=== PATIENT | female | born 1985 | race Caucasian/White ===

== ENCOUNTER 2022-10-21 07:29 | Inpatient (IN) | payer OTHER, SELFPAY ==
[2022-10-21 07:38] VITALS: BP 115/65
[2022-10-21 09:09] LABS: Add Manual Diff / Slide Review NO; Basophils Absolute Auto 0 /uL (0-100); Basophils Percent Auto 0.4 % (0-2); Eosinophils Absolute Auto 100 /uL (0-450); Eosinophils Percent Auto 0.7 % (2-4); Hematocrit 32.3 % (36-46); Hemoglobin 10.9 g/dL (12.0-16.0); Lymphocytes Absolute Auto 1900 /uL (1100-4500); Lymphocytes Percent Auto 16.5 % (25-40); Mean Corpuscular HGB Conc 33.8 % (30-36); Mean Corpuscular Hemoglobin 24.8 PG (26-34); Mean Corpuscular Volume 73.4 fL (80-100); Monocytes Absolute Auto 600 /uL (0-900); Monocytes Percent Auto 5.5 % (3-14); Neutrophils Absolute Auto 9000 /uL (1500-7000); Neutrophils Percent Auto 76.9 % (50-75); Platelet Count 273 X10^3/uL (150-400); Red Cell Distribution Width 16.4 % (11.6-14.8); White Blood Cell Count 11.8 X10^3/uL (4.5-11.0)
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
[2022-10-21] MEDS: LACTATED RINGERS 1,000 ML 100 ML IV (09:39)
[2022-10-21] MEDS: OXYTOCIN PREMIX 30 UNIT/500 ML PLAST..BAG IV (09:39)
[2022-10-21 10:19] VITALS: BP 115/65; PULSE 90
[2022-10-21 10:42] VITALS: TEMP 36.2
[2022-10-21 10:46] VITALS: RESP 16
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
--- NOTE | 2022-10-21 16:02 | PM.OBPNLAB ---
Date/Time Date Patient Seen: 10/21/22 Time Patient Seen: 15:30 Pain Control Pain control: tolerating well Comments: Paola is coping well with labor but getting more nervous - now feeling that contractions are getting painful. Thrilled to hear that she's 6 cm. Does not want to have her water broken right now. Pelvic Exam Dilation (cm): 6 Effacement (%): 80 station: -1 Amniotic membrane status: Intact Comments: Fetus ROP by ultrasound Contractions Pitocin rate (mU/min): 10 Contraction frequency (min): 2 Contraction duration (min): 1 Contraction pattern: Regular Contraction intensity: Moderate Status status: Category l Heart Rate Baseline: 140 Monitor Accelerations: Present Monitor Decelerations: Absent Monitor Variability: Moderate Comments: Non-recurring variable decelerations seen earlier; none in last 30 minutes. Late decels noted earlier in the day when pitocin at 14 mu/min, so pitocin turned down and patient repositioned at that time. VS: BP - 121/65 HR - 97 bpm Temp - 36.2 C BG at 1300 - 87 Assessment and Plan Assessment: active labor, induction ongoing and other ( at 39w0d by early US; GDMA2, GBS neg, Rh pos, FHR Cat 1 ) Plan: continuous present management and other (encourage AROM) Comments: Bedside ultrasound after SVE to confirm position as glenny OT. Continue q 2 hour blood sugar checks. AROM recommended by SARAH and Dr. Woodard, patient refused at this time. Reviewed pain management options. Anticipate NSVB.
--- NOTE | 2022-10-21 16:30 | PM.AN.REGBLK ---
Regional Block Pre-procedure Procedure: Continuous Lumbar Epidural for L&D Labs: Hct 32.3 % (36-46) L 10/21/22 08:00 Hct Cancelled 10/21/22 08:00 Plt Count 273 X10^3/uL (150-400) 10/21/22 08:00 Plt Count Cancelled 10/21/22 08:00 Medications: Current Medications Generic Name Dose Route Start Last Admin Trade Name Freq PRN Reason Stop Dose Admin Calcium Carbonate 1,000 mg 10/21/22 08:18 Calcium Carbonate 500 Mg Tab PO Q4HR PRN Dyspepsia Carboprost Tromethamine 250 mcg 10/21/22 08:13 Carboprost 250 Mcg/Ml Ampul IM Q90M PRN Bleeding Diphenhydramine HCl 25 mg 10/21/22 16:26 Diphenhydramine 50 Mg/Ml Vial IV Q10M PRN Pruritis Ephedrine Sulfate 10 mg 10/21/22 16:26 Ephedrine 50 Mg/Ml Vial IV Q5M PRN Blood pressure decrease more than 20% of baseline. Fentanyl 100 mcg 10/21/22 08:18 Fentanyl 100 Mcg/2 Ml Inj IV Q1H PRN Pain, Severe (7-10) Oxytocin/Lactated Ringer's 30 unit in 500 mls @ 200 mls/hr 10/21/22 08:13 Oxytocin Premix IV CONT PRN Bleeding Protocol Tranexamic Acid 1,000 mg/ 100 mls @ 200 mls/hr 10/21/22 08:13 Sodium Chloride IV NOW PRN Bleeding Oxytocin/Lactated Ringer's 30 unit in 500 mls @ 2 mls/hr 10/21/22 08:15 10/21/22 09:39 Oxytocin Premix IV 2 milliunit/min TITRATE ADA 2 mls/hr Administration Protocol 2 MILLIUNIT/MIN Lactated Ringer's 1,000 mls @ 100 mls/hr 10/21/22 08:15 10/21/22 09:39 Lactated Ringers IV 100 mls/hr CONT ADA Administration FENT 2MCG/ML BUPIV 0.125% EPI 200 mcg in 100 mls @ 10 mls/hr 10/21/22 16:30 Fentanyl/Bupiv/Ns 2mcg/Ml - 0.125% EPIDURAL CONT ADA Lidocaine HCl 20 ml 10/21/22 08:13 Lidocaine 1% 20 Ml INJ INTRA-OP PRN Post Delivery Methylergonovine Maleate 0.2 mg 10/21/22 08:13 Methylergonovine 0.2 Mg Tablet PO Q6HR PRN Heavy Bleeding Methylergonovine Maleate 0.2 mg 10/21/22 08:13 Methylergonovine 0.2 Mg/Ml Vial IM NOW PRN Bleeding Misoprostol 800 mcg 10/21/22 08:13 Misoprostol 200 Mcg Tablet DE NOW PRN Bleeding Misoprostol 400 mcg 10/21/22 08:13 Misoprostol 200 Mcg Tablet SL NOW PRN Bleeding Nalbuphine HCl 2.5 mg 10/21/22 16:26 Nalbuphine 20 Mg/Ml Ampul IV Q10M PRN Pruritis Naloxone HCl 0.2 mg 10/21/22 08:13 Naloxone 0.4 Mg/Ml Vial IV Q2MIN PRN Opiate Reversal Ondansetron HCl 4 mg 10/21/22 08:18 Ondansetron 4 Mg/2 Ml Inj IV Q4HR PRN Nausea And Vomiting Oxytocin 10 unit 10/21/22 08:13 Oxytocin 10 Unit/Ml Vial IM NOW PRN Bleeding Allergies: Allergies Allergy/AdvReac Type Severity Reaction Status Date / Time mold Allergy Mild ITCHING Uncoded 10/21/22 10:06 lactose AdvReac Intermediate Abdominal Uncoded 10/21/22 10:06 Pain
--- NOTE | 2022-10-21 17:40 | PM.AN.REGBLK ---
Regional Block Pre-procedure Procedure: Continuous Lumbar Epidural for L&D Attending OB provider: Sheryl Baltazar PMH/ROS narrative: No issues with anesthesia in past, gestational diabetes on insulin, polycystic ovarian syndrome Hx: No personal or family history of anesthesia problems. Exam narrative: See paper preanesthesia evaluation ASA Class: II Labs: Hct 32.3 % (36-46) L 10/21/22 08:00 Hct Cancelled 10/21/22 08:00 Plt Count 273 X10^3/uL (150-400) 10/21/22 08:00 Plt Count Cancelled 10/21/22 08:00 Medications: Current Medications Generic Name Dose Route Start Last Admin Trade Name Freq PRN Reason Stop Dose Admin Calcium Carbonate 1,000 mg 10/21/22 08:18 Calcium Carbonate 500 Mg Tab PO Q4HR PRN Dyspepsia Carboprost Tromethamine 250 mcg 10/21/22 08:13 Carboprost 250 Mcg/Ml Ampul IM Q90M PRN Bleeding Diphenhydramine HCl 25 mg 10/21/22 16:26 Diphenhydramine 50 Mg/Ml Vial IV Q10M PRN Pruritis Ephedrine Sulfate 10 mg 10/21/22 16:26 Ephedrine 50 Mg/Ml Vial IV Q5M PRN Blood pressure decrease more than 20% of baseline. Fentanyl 100 mcg 10/21/22 08:18 Fentanyl 100 Mcg/2 Ml Inj IV Q1H PRN Pain, Severe (7-10) Oxytocin/Lactated Ringer's 30 unit in 500 mls @ 200 mls/hr 10/21/22 08:13 Oxytocin Premix IV CONT PRN Bleeding Protocol Tranexamic Acid 1,000 mg/ 100 mls @ 200 mls/hr 10/21/22 08:13 Sodium Chloride IV NOW PRN Bleeding Oxytocin/Lactated Ringer's 30 unit in 500 mls @ 2 mls/hr 10/21/22 08:15 10/21/22 09:39 Oxytocin Premix IV 2 milliunit/min TITRATE ADA 2 mls/hr Administration Protocol 2 MILLIUNIT/MIN Lactated Ringer's 1,000 mls @ 100 mls/hr 10/21/22 08:15 10/21/22 09:39 Lactated Ringers IV 100 mls/hr CONT ADA Administration FENT 2MCG/ML BUPIV 0.125% EPI 200 mcg in 100 mls @ 10 mls/hr 10/21/22 16:30 Fentanyl/Bupiv/Ns 2mcg/Ml - 0.125% EPIDURAL CONT ADA Lidocaine HCl 20 ml 10/21/22 08:13 Lidocaine 1% 20 Ml INJ INTRA-OP PRN Post Delivery Methylergonovine Maleate 0.2 mg 10/21/22 08:13 Methylergonovine 0.2 Mg Tablet PO Q6HR PRN Heavy Bleeding Methylergonovine Maleate 0.2 mg 10/21/22 08:13 Methylergonovine 0.2 Mg/Ml Vial IM NOW PRN Bleeding Misoprostol 800 mcg 10/21/22 08:13 Misoprostol 200 Mcg Tablet SD NOW PRN Bleeding Misoprostol 400 mcg 10/21/22 08:13 Misoprostol 200 Mcg Tablet SL NOW PRN Bleeding Nalbuphine HCl 2.5 mg 10/21/22 16:26 Nalbuphine 20 Mg/Ml Ampul IV Q10M PRN Pruritis Naloxone HCl 0.2 mg 10/21/22 08:13 Naloxone 0.4 Mg/Ml Vial IV Q2MIN PRN Opiate Reversal Ondansetron HCl 4 mg 10/21/22 08:18 Ondansetron 4 Mg/2 Ml Inj IV Q4HR PRN Nausea And Vomiting Oxytocin 10 unit 10/21/22 08:13 Oxytocin 10 Unit/Ml Vial IM NOW PRN Bleeding Allergies: Allergies Allergy/AdvReac Type Severity Reaction Status Date / Time mold Allergy Mild ITCHING Uncoded 10/21/22 10:06 lactose AdvReac Intermediate Abdominal Uncoded 10/21/22 10:06 Pain Procedure Insertion date: 10/21/22 Insertion time: 17:14 Prep/Local: 1% lidocaine (Chlorprep with ample time to dry, greater than 3 minutes) Interspace: L3-4 Patient position: sitting Needle: 18 gauge Claudia (with CSE, (+) for CSF, no medications administered in intrathecal space) Loss of resistance with: saline (with air bubble) KEVIN at (cm): 6 Catheter placed at SKIN (cm): 12 Catheter in SPACE (cm): 6 Insertion: Yes CSF, No Blood, No Paresthesia with insertion, No Paresthesia with injection and No Test dose reaction Initial Medications TEST DOSE time: 17:16 TEST DOSE: 1.5% lidocaine with epinephrine 1:200k (mL): 3 BOLUS DOSE time: 17:27 BOLUS DOSE (mL): 4 Infusion INFUSION: 0.125% bupivacaine and with fentanyl 2 mcg/mL Initial rate (mL/hr): 10 Subsequent interventions: No additional interventions required, patient stable throughout labor and delivery process, no requests received from nursing staff. Post-procedure Anesthesia time START: 16:47 Anesthesia time END: 22:05 Post-procedure Anesthesia Assessment: Yes CV function: HR/BP stable, Yes Resp function: RR/sat/airway adequate, Yes Post-op hydration adequate, Yes Pain control adequate, Yes Nausea & vomiting absent, Yes Temperature > 36 C, Yes Mental status appropriate and Yes Anesthesia complications (No noted complications at this time. Epidural removed per nursing care.)
--- NOTE | 2022-10-21 18:41 | PM.OBPNLAB ---
Date/Time Date Patient Seen: 10/21/22 Time Patient Seen: 18:10 Pain Control Pain control: epidural Comments: CNM assuming care of patient who is resting comfortably on her left side after receiving her epidural. VS: BP 99/54, HR 87bpm, T 36.2C Temporal Pelvic Exam Dilation (cm): 9 Effacement (%): 100 station: 0 Amniotic membrane status: Leaking Contractions Monitor mode: External Pitocin rate (mU/min): 10 Contraction frequency (min): 2 Contraction pattern: Regular Contraction intensity: Moderate Status status: Category ll Heart Rate Baseline: 135 Monitor Accelerations: Present Monitor Decelerations: Variable Monitor Variability: Moderate Assessment and Plan Assessment: active labor Plan: continuous present management Comments: Anticipate second stage soon. Cart reviewed and plan of care discussed w/ OB Back-up . Reassess in 2-3 hours or sooner, PRN.
--- NOTE | 2022-10-21 22:05 | PM.OBPRVD ---
Events: Gestational Diabetes and Labor Induction Labor & Delivery Delivery date: 10/21/22 Intrapartal Events: None Cervical ripening method: none Induction method: per pitocin protocol Delivery monitor: external FHT and external uterine Route of delivery: Episiotomy description: None L&D Laceration Description: Perineal - 1st Degree Quantitative Blood Loss: 200 Anesthesia Type: Epidural Narrative: IOL for GDMA2 progressed well with pitocin (max dose 14mu/min), SROM for clear fluid (x3 hours) and adequate epidural anesthesia. Pushing was initiated at C/C/+2. Cat II FHR for occasional variables throughout labor and second stage. Coaching and strong maternal efforts led to NSVB pf a vigorous baby boy in LUCINDA position. There was no nuchal cord and the shoulders delivered easily. was called to standby at a small crown and arrived immediately after the d/t rapid progress from crown to . was placed on maternal abdomen for drying and skin to skin. Remaining 30 units of pitocin in 500mL LR was started at 250mL/hr for AMTSL. After cessation of pulsation, the cord was double clamped and cut. Cord blood hold sample was collected. Gentle cord traction and a single maternal push led to spontaneous, Schultze delivery of an apparently intact placenta, membranes and 3VC. Fundus immediately firm and bleeding minimal. Inspections revealed a short, hemostatic 1st degree perineal laceration that was well approximated with no indication for repair. QBL 200mL. Both mother and baby stable and skin to skin as I left the room. [place] Baby 1: Infant gender: Male Presentation: vertex Position: Left Occiput Anterior and Right Occiput Anterior Placenta delivery description: Spontaneous Cord Vessel Description: 3 Vessels score (1 min): 9 score (5 min): 9 weight: 3.852 kg Plan for aftercare: Routine care
[2022-10-22] MEDS: KETOROLAC 30 MG/ML VIAL IV (00:05)
[2022-10-22 08:21] LABS: Add Manual Diff / Slide Review NO; Basophils Absolute Auto 0 /uL (0-100); Basophils Percent Auto 0.3 % (0-2); Eosinophils Absolute Auto 0 /uL (0-450); Eosinophils Percent Auto 0.3 % (2-4); Hematocrit 29.3 % (36-46); Hemoglobin 9.9 g/dL (12.0-16.0); Lymphocytes Absolute Auto 1600 /uL (1100-4500); Lymphocytes Percent Auto 12.6 % (25-40); Mean Corpuscular HGB Conc 33.7 % (30-36); Mean Corpuscular Hemoglobin 24.9 PG (26-34); Monocytes Absolute Auto 700 /uL (0-900); Monocytes Percent Auto 5.7 % (3-14); Neutrophils Absolute Auto 10400 /uL (1500-7000); Neutrophils Percent Auto 81.1 % (50-75); Platelet Count 238 X10^3/uL (150-400); Red Blood Cell Count 3.96 X10^6/uL (4.0-5.2); Red Cell Distribution Width 16.2 % (11.6-14.8); White Blood Cell Count 12.8 X10^3/uL (4.5-11.0)
[2022-10-22] MEDS: ACETAMINOPHEN 325 MG TABLET 650 MG PO (08:58)
--- NOTE | 2022-10-22 11:54 | P.DS_ITS ---
Discharge Providers Provider Date of admission: 10/21/22 07:29 Discharge Date: 10/22/22 Primary care physician: APRIL Browning Consults: 10/21/22 08:14 Consult to Anesthesiology Urgent Comment: Consulting Provider: Anesthesiologist Reason for consultation: Epidural 10/22/22 22:01 Consult to Caramel Cutter Hand Routine Comment: Discharge provider: Gita Cortes CNM Summary Hospital Course Date Patient Seen: 10/22/22 Time Patient Seen: 14:16 Diagnoses: O70.0 Hospital Course: PPD1: Stable s/p NSVB with small 1st degree perineal laceration. Voiding, ambulating and independently (also supplementing at her request). Tolerating a general diet. Minimal pain is well controlled with PO Tylenol. Vaginal bleeding is light, without clots. Peripartum Data Infant Delivery Method: Natural Vaginal Laceration Description: Perineal - 1st Degree Episiotomy description: None Procedures: IOL for GDMA2 resulting in O70 complications: none 1: Gender: Male Disposition of : other (remains admitted tonight, mother to room in) Discharge Diagnosis (1) First degree perineal laceration during delivery: Status: Acute Problem Details: Routine course with continued BG monitoring device Status at Discharge Cognitive/behavioral status at discharge: oriented and calm Functional status at discharge: independent ambulation Overall status at discharge: patient is progressing back to baseline Time Spent with Patient Time attestation: Total time spent providing and/or coordinating discharge services: Objective Labs 10/22/22 08:05 Labs: Laboratory Results - last 24 hr 10/22/22 08:05 WBC 12.8 H RBC 3.96 L Hgb 9.9 L Hct 29.3 L MCV 74.0 L MCH 24.9 L MCHC 33.7 RDW 16.2 H Plt Count 238 Neut % (Auto) 81.1 H Lymph % (Auto) 12.6 L [place] % (Auto) 5.7 Eos % (Auto) 0.3 L Baso % (Auto) 0.3 Neut # (Auto) 71813 H Lymph # (Auto) 1600 [place] # (Auto) 700 Eos # (Auto) 0 Baso # (Auto) 0 Exam Vital Signs (past 8 hours): HR 99bpm, RR 14/min, BP 117/69mmHg, T 98.4F Temporal Other: Fundus firm @ U-1, lochia smal, no clots. Perineum well approximated. Discharge Plan Discharge Plan Patient Disposition: Home Discharge orders & Medications Prescriptions: New ibuprofen 600 mg Tablet 600 mg PO Q6HR PRN (Reason: Pain, Mild (1-3)) 14 Days Qty: 60 0RF Discontinued Toujeo Max U-300 SoloStar 300 unit/mL (3 mL) insulin pen SUBCUT Patient Comments: inject 52 units subcutaneously at bedtime INCREASE as directed to MAX 100 units once daily; took78 u 10/20 pm metformin 500 mg tablet extended release 24 hr PO Rx Instructions: take 500 mg in am, 1000 mg at lunch, 1000 mg at dinner Follow up/Referrals: Gita Cortes CNM [[facility]] - (Follow-up at 2 weeks and 6 weeks , as scheduled. Appointment confirmations are in your email. ) Diet/Activity/Treatments Diet: Diet as Tolerated and Regular Activity: pelvic rest x 6 weeks Skin/Wound/Dressing Care Report to your healthcare provider any signs of infection, such as:: chills, fever, increased pain, unusual drainage and unusual redness Visit Report/Discharge Packet Instructions: DI for Depression Stand Alone Forms: Patient Portal/API
[2022-10-22 18:16] VITALS: BP 118/74; PULSE 97; RESP 16; TEMP 36.9
== END 2022-10-22 18:58 | disposition home or self-care (01) | DRG 807 ==
PROVIDERS: Nurse Practitioner Obstetrics & Gynecology; Admitting Provider Advanced Practice Midwife; Referring Provider Advanced Practice Midwife; Visit Provider Advanced Practice Midwife
DX: O24.424 Gestational diabetes mellitus in childbirth, insulin controlled (principal); Z37.0 Single live birth; Z3A.39 39 weeks gestation of pregnancy; Z79.84 Long term (current) use of oral hypoglycemic drugs; O76 Abnormality in fetal heart rate and rhythm complicating labor and delivery; O70.0 First degree perineal laceration during delivery
CPT/HCPCS: 36415; 59050; 85025; 86850; 86900; 86901; G0379; J1885; J2590